=== PATIENT | male | born 1985 | race Two or more races ===

== ENCOUNTER 2021-04-16 03:35 | Emergency (ER) | payer OTHER ==
[~2021-04-16] VITALS: Ht 165.1 cm; Wt 65.8 kg
--- NOTE | 2021-04-16 03:51 | NUR ---
PT AAOX4. BIBEMS C/O ABDOMINAL PAIN, ALCOHOL WITHDRAWAL X3 DAYS. PLACED IN BED 12 ON MONITOR AND PULSE OX. IV LINE PLACED IN RAC 20G, BLOOD COLLECTED, SENT TO LAB.
[2021-04-16] MEDS: Thiamine 100 MG in IV D5W 50 ML IV STA (04:15)
[2021-04-16] MEDS ORDERED: LORAZEPAM INJ 2 MG/ML VIAL ONE ×2 (04:16→04:38)
[2021-04-16] MEDS ORDERED: Thiamine 100 MG/ML VIAL ONE (04:16)
[2021-04-16] MEDS ORDERED: ONDANSETRON HCL/PF 4 MG/2 ML VIAL ONE (04:16)
[2021-04-16] MEDS: IV NS 0.9% 1,000 ML BAG IV ONE (04:20)
[2021-04-16 04:21] LABS: BASOPHILS % (AUTO) 0.8 % (0.0-2.0); EOSINOPHILS % (AUTO) 1.7 % (0.0-6.0); HEMATOCRIT 46 % (39-51); HEMOGLOBIN 15.6 g/dL (13.5-17.5); LYMPHOCYTES # (AUTO) 1.3 K/uL (0.8-4.8); LYMPHOCYTES % (AUTO) 23.2 % (20.0-44.0); MEAN CORPUSCULAR HGB CONC 34 g/dl (31.0-36.0); MEAN CORPUSCULAR VOLUME 101 fL (80-96); MONOCYTES # (AUTO) 0.9 K/uL (0.1-1.30); MONOCYTES % (AUTO) 14.8 % (2.0-12.0); NEUTROPHILS # (AUTO) 3.4 K/uL (1.8-8.9); NEUTROPHILS % (AUTO) 59.5 % (43.0-81.0); PLATELET COUNT (AUTO) 201 K/uL (150-450); RED BLOOD CELL COUNT(AUTO) 4.51 MIL/uL (4.5-6.0); WHITE BLOOD COUNT (AUTO) 5.8 K/uL (4.3-11.0)
[2021-04-16] MEDS: ONDANSETRON HCL/PF - ER 4 MG/2 ML VIAL IV ONE (04:25)
[2021-04-16] MEDS: LORAZEPAM INJ 2 MG/ML VIAL IV ONE ×2 (04:27→04:55)
[2021-04-16 04:28] LABS: CALCIUM, SERUM 9.7 mg/dL (8.5-10.1); CREATININE 0.9 mg/dL (0.6-1.3); POTASSIUM 3.8 mmol/L (3.5-5.1)
[2021-04-16 04:34] LABS: ALBUMIN 4.8 g/dL (3.4-5.0); BILIRUBIN,DIRECT 0.3 mg/dL (0.0-0.2); BILIRUBIN,TOTAL 0.9 mg/dL (0.2-1.0); TOTAL PROTEIN, SERUM 8.6 g/dL (6.4-8.2)
[2021-04-16] MEDS ORDERED: CHLO25CA22 PO (04:44)
[2021-04-16] MEDS ORDERED: ONDA4TAB11 PO (04:44)
--- NOTE | 2021-04-16 04:55 | NUR ---
BROUGHT TO CT
--- NOTE | 2021-04-16 04:58 | NUR ---
BROUGHT BACK FROM CT
[2021-04-16] MEDS ORDERED: CHLORDIAZEPOXIDE HCL 25 MG CAPSULE ONE (05:19)
[2021-04-16] MEDS: CHLORDIAZEPOXIDE HCL 25 MG CAPSULE PO ONE (05:22)
[2021-04-16 06:11] VITALS: BP 134/75
--- NOTE | 2021-04-16 06:11 | NUR ---
Patient discharged to home in stable condition. Written and verbal after care instructions given. Patient verbalizes understanding of instruction and RX. Pt ambulated out of ED. VSS.
--- NOTE | 2021-04-16 06:11 | NUR ---
IV removed. Catheter intact and site benign. Pressure and 4x4 applied to site. No bleeding noted.
== END 2021-04-16 06:12 | disposition home or self-care (01) ==
LOC: ER 03:37
DX: F10.139 Alcohol abuse with withdrawal, unspecified (principal); R25.3 Fasciculation; Y90.9 Presence of alcohol in blood, level not specified; Z60.2 Problems related to living alone; Z79.899 Other long term (current) drug therapy
CPT/HCPCS: 36415; 74176; 76705; 80048; 80076; 83690; 85025; 96365; 96375; 99285; J2060 ×2; J2405 ×2; J3411 ×2; J7030; J7060 ×2